=== PATIENT | female | born 1955 | race Caucasian/White ===

== ENCOUNTER 2021-09-04 09:43 | Outpatient (CLI) | payer OTHER, SELFPAY ==
--- NOTE | 2021-09-04 09:48 | FL_ITS ---
WS: [id number] ESOPHAGRAM WITH FLUOROSCOPY HISTORY: DYSPHAGIA, DYSPHONIA COMPARISON: None available. FLUOROSCOPY TIME: 2.0 minutes. Esophagus and swallowing function: Patient swallowed the barium mixture without difficulty. No strict ures or mucosal abnormalities are identified. Barium tablet was swallowed without difficulty. There i s significant pharyngeal coating after swallowing with the barium mixture. No aspiration was evident. No soft tissue mass or filling defect. Vertebral osteophytes encroach upon the posterior cervical es ophagus but do not cause significant narrowing or stricture. Gastroesophageal reflux: Delayed emptying of the esophagus with the patient supine. There was only mi nimal gastroesophageal reflux. Hiatal hernia: Small hiatal hernia. FL/FL barium swallow [id number] IMPRESSION: 1. Delayed emptying of the esophagus due to mild dysmotility. 2. Minimal gastroesophageal reflux into the distal esophagus. 3. No strictures or mass identified. 4. Small reducible hiatal hernia.
--- NOTE | 2021-09-04 09:48 | CT_ITS ---
WS: [id number] CT NECK WITHOUT CONTRAST. HISTORY: DYSPHAGIA, DYSPHONIA TECHNIQUE: Contiguous 5 mm axial images are performed through the neck without intravenous contrast. Sagittal and coronal reformats are also submitted. All CT scans at [facility] use at least on e of these dose optimization techniques: automated exposure control; mA and/or kV adjustment per lissy ent size (includes targeted exams where dose is matched to clinical indication); or iterative reconst ruction. CONTRAST: CONTRAST: Omnipaque 300; 95 mL IV. DLP: 412.06 mGy.cm COMPARISON: None available. Nasopharynx, oropharynx, hypopharynx and larynx are unremarkable. No soft tissue masses mass is ident ified. Torus tubarius and fossa of Rosenmuller and parapharyngeal fat are normal. No significant lymphadenopathy is identified. Mildly enlarged thyroid extends minimally substernal. Subcentimeter RIGHT thyroid nodule. Well-circumscribed mass in the superficial lobe of the RIGHT parotid gland measures 12 x 8 mm. Mild degenerative disc disease and osteophytosis at C5-6. Mild atherosclerotic plaque within the intracranial carotid arteries and the cervical carotid arterie s. Visualized paranasal sinuses and mastoid air cells are normal. Cardiomegaly. CT/CT neck wo con [id number] IMPRESSION: 1. No neck mass or adenopathy identified on this unenhanced CT. 2. Superficial RIGHT parotid lobe mass measures 12 x 8 mm. Recommend evaluatio n by ultrasound. This may be a benign or malignant etiology. Not typical for a lymph node. 3. Cardiomegaly.
== END 2021-09-04 09:44 | disposition home or self-care (01) ==
PROVIDERS: Visit Provider Specialist
DX: R13.10 Dysphagia, unspecified (principal); R49.0 Dysphonia; K30 Functional dyspepsia; K21.9 Gastro-esophageal reflux disease without esophagitis; K44.9 Diaphragmatic hernia without obstruction or gangrene
CPT/HCPCS: 70490; 74220

== ENCOUNTER 2021-10-23 11:56 | Observation (INO) | payer OTHER, SELFPAY ==
[2021-10-22 15:27] VITALS: BMI 26.3
[2021-10-23] VITALS (9 sets, daily range): BP systolic 91–115; BP diastolic 53–71; PULSE 60–80; RESP 14–18; TEMP 36.4–36.6; O2SAT 96–100; BMI 26.3
--- NOTE | 2021-10-23 06:39 | ANES.PREANE2 ---
Pre-Anesthetic Assessment Pre-Anesthetic Assessment: Height/Weight: Height 1.57 m Weight 65.317 kg Temp Pulse Resp BP Pulse Ox 97.9 F 66 18 115/71 97 10/23/21 06:34 10/23/21 06:34 10/23/21 06:34 10/23/21 06:34 10/23/21 06:34 Preop Diagnosis: Neck mass Proposed Procedure: Operation Date: 10/23/21 07:00 Proposed Procedures p [id number]/r131.9/J38.1(Not Applicable) - Jey Siddiqui MD s Direct Laryngoscopy(Not Applicable) - Jey Siddiqui MD s Esophagoscopy(Not Applicable) - Jey Siddiqui MD Familial anesthetic complications: None Was Beta Cosmo taken within 24 hours: N/A Was Clonidine taken within 24 hours: N/A Last intake: Intake Last Liquid Date 10/22/21 Last Liquid Time 00:00 Last Solid Date 10/22/21 Last Solid Time 21:00 Social: Social History: Tobacco and No alcohol Exam: Pre-Anes Outpt Exam: alert, oriented x 3, clear to auscultation bilaterally and regular rate & rhythm Airway: Cervical ROM: WNL MP: 2 Dentition: False Pulmonary: Pulmonary: COPD (no O2 or use of steroids or hospitalizations) CV/HEM: CV/HEM: Angina (Stable) (cath 5-6 years ago, patient states was good, no stents, angina improved since then) and HTN : : Chronic renal Insufficiency (SCr 1.6) GI: GI: GERD Metabolic: Metabolic: DM Neuropsych: Neuropsych: Neuropathy Anesthetic Plan: ASA status: 3 Anesthesia: General Risk of > 500 ml blood loss (7ml/kg in children): No PFSH Anesthesia PFSH: Social History (Updated 10/22/21 @ 14:36 by Maria D Sahu) Smoking and tobacco status: current every day smoker cigarettes Packs smoked per day: 1 Years cigarettes smoked: 51 Number of cigarettes per day: 11-20 Alcohol intake: former Substance/Drug Use: current Substance/Drug use type: Marijuana Desire information about substance/drug rehabilitation?: No Data Anesthesia Cardiac Studies: No Data to Display
--- NOTE | 2021-10-23 06:48 | W.PM.OPSUD ---
Surgery/Procedure H&P Update DATE OF PROCEDURE: October 23, 2021 DATE H&P PERFORMED: 10/10/21 H&P UPDATE INFORMATION: I have reviewed H&P completed within last 30 days, I have examined patient prior to procedure, No changes to prior documentation and H&P to be scanned into chart PREOP DIAGNOSIS: Right parotid gland mass, Dysphagia PLANNED PROCEDURE: Operation Date: 10/23/21 07:00 Proposed Procedures p [id number]/J38.1(Not Applicable) - Jey Siddiqui MD s Direct Laryngoscopy(Not Applicable) - Jey Siddiqui MD s Esophagoscopy(Not Applicable) - Jey Siddiqui MD
[2021-10-23] MEDS: sodium chloride 0.9% 1,000 ML 30 ML IV (06:49)
[2021-10-23 06:53] LABS: Glucose Point of Care 116 mg/dL (70-110)
--- NOTE | 2021-10-23 06:59 | ANES.PREANE2 ---
Pre-Anesthetic Assessment Pre-Anesthetic Assessment: Height/Weight: Height 1.57 m Weight 65.317 kg Temp Pulse Resp BP Pulse Ox 97.9 F 66 18 115/71 97 10/23/21 06:34 10/23/21 06:34 10/23/21 06:34 10/23/21 06:34 10/23/21 06:34 Preop Diagnosis: Right parotid gland mass, Dysphagia Proposed Procedure: Operation Date: 10/23/21 07:00 Proposed Procedures p [id number]/J38.1(Not Applicable) - Jey Siddiqui MD s Direct Laryngoscopy(Not Applicable) - Jey Siddiqui MD s Esophagoscopy(Not Applicable) - Jey Siddiqui MD Last intake: Intake Last Liquid Date 10/22/21 Last Liquid Time 00:00 Last Solid Date 10/22/21 Last Solid Time 21:00 Meds/Allergies Current Medications: Current Medications Generic Name Dose Route Start Last Admin Trade Name Celioq PRN Reason Stop Dose Admin Sodium Chloride 1,000 mls @ 30 ml s/hr 10/23/21 06:15 10/23/21 06:49 Sodium Chloride 0.9% IV 30 mls/hr .Q24H MERRICK Administration PFSH Anesthesia PFSH: Social History (Updated 10/22/21 @ 14:36 by Maria D Sahu) Smoking and tobacco status: current every day smoker cigarettes Packs smoked per day: 1 Years cigarettes smoked: 51 Number of cigarettes per day: 11-20 Alcohol intake: former Substance/Drug Use: current Substance/Drug use type: Marijuana Desire information about substance/drug rehabilitation?: No Data Anesthesia Other Labs: Laboratory Results - last 48 hr 10/23/21 06:46 POC Glucose 116 H Cardiac Studies: No Data to Display
[2021-10-23] MEDS: EPINEPHrine 1 mg/mL INJ 2 MG XX (08:30)
[2021-10-23] MEDS: ceFAZolin 1,000 mg SDV 1000 MG IRRIGATION (08:32)
[2021-10-23] MEDS: fluorescein 1 mg Strip XX (08:34)
[2021-10-23] MEDS: thrombin 5,000 unit SDV 5000 UNIT XX (10:07)
[2021-10-23] MEDS: neomycin-poly-bacitracin oint 28 gm 1 APPLIC TOPICAL (10:08)
--- NOTE | 2021-10-23 11:13 | SUR.OPER ---
1112 report given to zen, all questions answered to icu nurse satisfaction
--- NOTE | 2021-10-23 11:29 | P.OP_ITS ---
Operative Report Date of procedure: October 23, 2021 Pre-op Diagnosis: Right parotid gland mass, Dysphagia Post-op diagnosis: same Post-op Findings: - Right superficial parotid mass - Facial nerve identified and preserved intact - Polypoid changes of the true vocal cords, right greater than left; Bilateral kelsey's nodules; inflammatory changes of the subglottis; o/w normal larynx - Esophagitis at the G-E junction and right mid esophagus Procedure Done: Right superficial parotidectomy Microdirect laryngoscopy with biopsy Flexible esophagoscopy with biopsy Implants: None Pathology: Right parotid mass Right true vocal cord lesion; Right subglottic lesion Polypoid lesion of the true vocal cords, right greater than left; inflammatory changes of the subglottis Esophagitis at the G-E junction and right mid esophagus Surgeon: Jey Siddiqui [employer]man Shipping Department: Bib Jane Foreman Shipping Department: Belinda Torres Anesthesia: General Estimated blood loss (mL): 10 IV fluids (mL): 1,400 Urine output (mL): 600 Complications: None Findings: - 2cm right superficial parotid mass; Intact right facial nerve; o/w normal right parotid gland - 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 Procedure: The patient was identified in the preoperative holding area and was taken to the operating room where she was placed on the operating table in the supine position. Anesthesia was obtained with general endotracheal anesthesia and the table was turned 180 degrees. The patient's head was then turned to the left exposing the right face to the operating surgeon and a modified Cooper incision was drawn out on the patient's right face. The incision was then injected with local anesthesia and the patient was then prepped and draped in the usual sterile fashion. Prior to prepping the patient the Nirvana nerve monitoring system was placed on the patient in the standard fashion. The incision was then made on the right face with a 15 blade and was carried down through skin and subcutaneous tissues with electrocautery and sharp scissors. An anteriorly based subcutaneous flap was raised with the Metzenbaum scissors exposing the right parotid gland. The [place] retractor was used to hold the wound open. At this point a wide-based dissection began along the anterior border of the right sternocleidomastoid muscle and in the immediate preauricular area with sharp scissors and the Neurvana nerve monitoring hemostat. At this point the dissection proceeded along a wide front with the deepest portion being at the tympanomastoid suture line. Using the Nirvana nerve monitoring hemostats and bipolar cautery. Eventually the facial nerve was exposed-it was identified both electrically and visually and then was then traced out into the parotid gland. Each individual branch distal to the pes anserinus was traced out preserving the facial nerve branches intact and dissecting the parotid gland off of the facial nerve. The right parotid mass was identified in the low pre auricular area and was dissected free from the surrounding parotid gland with a wide cuff of normal-appearing parotid tissue surrounding the mass - this was accomplished using the Nirvana nerve monitoring hemostat and bipolar cautery. Once the mass had been removed, the facial nerve was reinspected and found to have all branches intact both visually and electrically. 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 At this point the wound was inspected for hemostasis which was achieved with bipolar cautery. The parotid remnant was then reapproximated using interrupted 4-0 Monocryl sutures and the wound was closed with interrupted 4 Monocryl sutures in the subcu and a running 5-0 fast-absorbing gut on the skin. Prior to wound closure, a Rolando drain was placed under the skin and was secured in place with interrupted 3-0 Prolene sutures. The right facial wound was then cleaned and covered triple antibiotic ointment. At this point attention was turned to the patient's larynx where she underwent MicroDirect laryngoscop. with biopsies. A surgical laryngoscope was advanced on the right oral cavity gutter under direct vision until the larynx came into view. A systematic inspection was carried of the patient's larynx with findings noted above. Biopsies were taken of the polypoid mass on the of the right true vocal cord and the subglottis. Hemostasis was achieved by direct application of 11/999 epinephrine. Once this was accomplished, a systematic inspection was carried out of the patient's tongue base, vallecula, aryepiglottic folds, false and true vocal cords, piriform sinuses, and postcricoid area with no other abnormalities found except as previously noted. At this point the laryngoscope was removed and the esophagoscope was advanced into the esophageal inlet and was used to make an inspection of the esophagus to the cardia of the stomach with the findings noted above. Biopsies were taken at the GE junction and of the patient's right mid esophageal lesion. At this point the esophagoscope was removed and the procedure was terminated. Control of the patient was returned to anesthesia where she underwent an uneventful reversal of anesthesia and extubation and she was taken to the recovery room in stable condition. There were no operative or anesthetic complications
--- NOTE | 2021-10-23 11:40 | PC.NURSE ---
To floor Pt brought to floor by OR staff via bed. Pt is awake, alert and oriented. Incision to right neck has some pink drainage noted. There is some noted edema just above pt's right jaw line. RAJENDRA drain is in place with scant amount of drainage. Chung catheter patent and draining. Pt was placed on 2 liters NC to maintain O2 sats above 90. Pt denies pain. Pt has been oriented to room. Family is at bedside.
[2021-10-23] MEDS: morphine 4 mg/mL SDV 1 mL 2 MG IVP ×3 (12:53→23:05)
[2021-10-23] MEDS: famotidine 20 mg/2 mL INJ IVP (12:55)
[2021-10-23] MEDS: gabapentin 300 mg Capsule PO ×2 (14:26→20:09)
--- NOTE | 2021-10-23 15:46 | ANE.PACU2 ---
Inpatient post-anesthesia follow up: Airway intact: Yes Vital signs: Temperature 97.5 F Pulse Rate 80 Respiratory Rate 18 Blood Pressure 97/57 Pulse Oximetry 98 Oxygen Delivery Me thod Nasal Cannula Oxygen Flow Rate 2 Fraction of Inspir ed Oxygen Hydration adequate: No Nausea and vomiting: No Pain level: 6 Mental status: Baseline Additional Comments: EMR review
--- NOTE | 2021-10-23 17:28 | PM.PN ---
Subjective Subjective: Interval history: 66 yo wf who is night of surgery s/p right superficial parotidectomy who reports that she is doing well. She c/o right ear numbness, but is o/w doing well. The patient reports that she has been eating and that her face is working well. She has no other c/o. Vitals/I&O/Wt Last Vital Signs Temp 97.5 F L 10/23/21 12:02 Pulse 80 10/23/21 14:00 Resp 18 10/23/21 15:26 BP 97/57 10/23/21 12:02 Pulse Ox 98 10/23/21 12:27 10/23/21 10/23/21 10/23/21 06:59 14:59 22:59 Intake Total 60 / 60 Output Total 600 / 600 Balance -540 / -540 Weight last 48 hrs Weight 65.317 kg Weight 65.317 kg Weight 67.132 kg Physical Exam Const: COMMON NORMALS: no acute distress and patient oriented x3 HENMT: COMMON NORMALS: normocephalic, atraumatic, external ears normal and Normal external nose present HEAD & SCALP: normocephalic and atraumatic FACE & SINUS: other (The patient's right face/neck wound is intact with no swelling/fluctuance.) NOSE: Normal external nose present EXTERNAL EAR: Yes external ears normal MOUTH: tongue normal Eye: COMMON NORMALS: EOMs intact bilaterally, conjunctivae normal and no scleral icterus CONJUNCTIVA: Yes conjunctivae normal Neck/C-Spine: COMMON NORMALS: no lymphadenopathy and supple GENERAL: Yes trachea midline and Yes other Lymph: LYMPHATIC: no lymphadenopathy noted Neuro: COMMON NORMALS: patient oriented x3 and CN's II-XII intact bilaterally Urinary Catheter Management^: Chung: Cath Placed During This Visit: yes Urinary Catheter Date of Insertion: 10/23/21 Urinary Catheter Time of Insertion: 07:55 A&P Additional A&P Information Impression: 66 yo wf who is night of surgery s/p right superficial parotidectomy with DL/Esophagoscopy with biopsies who is doing well Plan: - Overnight observation - Closed suction drainage - Regular diet - Anticipate d/c in the am - Apply JOSEE to the right neck/facial wound TID Attestations Medical Necessity Statement*: The patient is admitted for overnight observation of her wound and airway. Coding Level of Care Code Acute Accounting Professional for Raquel English
[2021-10-23] MEDS: docusate sodium 100 mg Capsule PO (17:49)
[2021-10-23] MEDS: carBAMazepine 200 mg Tablet PO (18:26)
--- NOTE | 2021-10-23 18:44 | PC.NURSE ---
Shift Note Frequent safety and comfort rounds continue. Orders and/or nursing care completed as indicated. Patient monitored for response to intervention and treatment(s). Education provided includes myke drain. Patient and/or factory representative verbalize understanding. Will continue to monitor.
[2021-10-23] MEDS: lisinopril 10 mg Tablet PO (20:09)
[2021-10-23] MEDS: ALPRAZolam 0.5 mg Tablet 1 MG PO (20:09)
[2021-10-23] MEDS: atorvastatin 40 mg Tablet PO (20:09)
[2021-10-23] MEDS: hyDRALAzine 25 mg Tablet PO (20:09)
[2021-10-23] MEDS: acetaminophen 325 mg Tablet 650 MG PO (21:13)
[2021-10-23 21:15] LABS: Acetaminophen < 5.0 ug/mL (10-30)
[2021-10-23] MEDS: ARIPiprazole 10 mg Tablet PO (21:33)
[2021-10-24] MEDS: famotidine 20 mg/2 mL INJ IVP (02:23)
--- NOTE | 2021-10-24 04:20 | PM.PN ---
Subjective Subjective: Interval history: 66 yo wf who is POD #1 s/p right superficial parotidectomy and DL/Esophagoscopy. The patient reports that she is doing well. She reports that she is eating well, and is o/w without c/o. Vitals/I&O/Wt Last Vital Signs Temp 97.5 F L 10/23/21 12:02 Pulse 69 10/23/21 22:00 Resp 14 10/23/21 23:05 BP 97/57 10/23/21 12:02 Pulse Ox 96 10/23/21 23:05 10/23/21 10/23/21 10/24/21 14:59 22:59 06:59 Intake Total 60 / 60 410 / 470 Output Total 600 / 600 460 / 1060 Balance -540 / -540 -50 / -590 Weight last 48 hrs Weight 65.317 kg Weight 65.317 kg Weight 67.132 kg Physical Exam Const: COMMON NORMALS: no acute distress, patient oriented x3 and healthy appearing HENMT: COMMON NORMALS: normocephalic, atraumatic, external ears normal and Normal external nose present HEAD & SCALP: normocephalic and atraumatic FACE & SINUS: normal facial exam and other (The right facial/neck wound is intact without erythema or fluctuance.) NOSE: Normal external nose present EXTERNAL EAR: Yes external ears normal Eye: COMMON NORMALS: EOMs intact bilaterally, conjunctivae normal and no scleral icterus CONJUNCTIVA: Yes conjunctivae normal Neck/C-Spine: COMMON NORMALS: no lymphadenopathy and supple GENERAL: Yes trachea midline Resp: COMMON NORMALS: normal respiratory effort, No use of accessory muscles and clear to auscultation bilaterally AUSCULTATION: clear to auscultation bilaterally Cardio: COMMON NORMALS: regular rate, regular rhythm and No murmurs present (Cardio) RATE: regular rate RHYTHM: regular rhythm GI: COMMON NORMALS: Normal to inspection, nondistended, normoactive bowel sounds present Extremity: COMMON NORMALS: normal to inspection Neuro: COMMON NORMALS: patient oriented x3, CN's II-XII intact bilaterally and moves all extremities Skin: COMMON NORMALS: no rashes or lesions noted GENERAL SKIN EXAM: no rashes or lesions noted Urinary Catheter Management^: Chung: Cath Placed During This Visit: yes Urinary Catheter Date of Insertion: 10/23/21 Urinary Catheter Time of Insertion: 07:55 A&P Additional A&P Information Impression: 66 yo wf who is doing well on POD #1 s/p right superficial parotidectomy Plan: - [place] () tabs: take 1-2 tabs po Q5 hours prn pain, #25, NR - Maintain and operate Rolando drain and record output - Regular diet - Apply JOSEE to the right facial wound TID - F/U in Dr. Siddiqui's office on 10/26/21 @ 13:00 hours - Notify Dr. Siddiqui for any noted problems - Resume normal activities as tolerated and ambulate TID Attestations Medical Necessity Statement*: The patient required overnight observation of her wound and airway Coding Level of Care Code Acute 4 H Youth Development Specialist for Raquel English
[2021-10-24 04:27] VITALS: BP 119/63; PULSE 80; RESP 14; TEMP 36.5; O2SAT 97
[2021-10-24 04:39] VITALS: RESP 14
[2021-10-24] MEDS: morphine 4 mg/mL SDV 1 mL 2 MG IVP ×2 (04:39→08:34)
[2021-10-24 05:24] VITALS: PULSE 56
--- NOTE | 2021-10-24 06:27 | PC.NURSE ---
Pt remained medically stable throughout shift. Patient received 2 doses of IVP morphine for post op pain, and PRN tylenol once for HELMS. Afebrile. Provider came by for rounding approximately 0500, and input orders for discharge, d/c'f davila catheter, and nurse to conduct pt education on RAJENDRA drain management. Pt voided post-catheter removal approximately 0610.
[2021-10-24 08:34] VITALS: RESP 20; O2SAT 96
[2021-10-24] MEDS: carBAMazepine 200 mg Tablet PO (08:38)
[2021-10-24] MEDS: amlodipine 5 mg Tablet PO (08:38)
[2021-10-24] MEDS: docusate sodium 100 mg Capsule PO (08:38)
[2021-10-24] MEDS: gabapentin 300 mg Capsule PO (08:38)
[2021-10-24] MEDS: hyDRALAzine 25 mg Tablet PO (08:39)
[2021-10-24] MEDS: pantoprazole DR 40 mg Tablet PO (08:39)
[2021-10-24 10:00] VITALS: RESP 20; O2SAT 96
--- NOTE | 2021-10-24 10:00 | PC.NURSE ---
Discharge instructions provided and discussed. Pt to poultry picking machine tender pain medication from Dr Siddiqui's office. All questions answered. Pt discharged.
--- NOTE | 2021-10-24 10:36 | PC.CHAP ---
Pastoral Care Encounter/Spiritual Assessment Type of Contact [] Declined associate professor of kinesiology visit [] Patient/Family/Request visit [] Outpatient visit [] Follow-up visit [] Physician referral [] Code/Alert [x] Routine visit [] Staff referral [] Actively dying [] Patient sleeping [] Family support [] [] Out of room [] Palliative care [] [] Receiving care in room [] Pre-surgical visit [] Trauma [] Long length of stay [x] ICU visit [] Other: Relational/Emotional Strength [] Patient feels connected with others/family/visitors/staff [] Distress [] Loneliness/isolation [] Abandonment Spirituality of Patient [] Person of Sobeida [] Attends Anglican of their Sobeida [] Believes in Prayer [] Reads Bible or Spiritism materials [] There are Spiritual issues to be addressed Press Puller Interventions [x] Prayer [x] Active listening [x] Non-anxious presence [x] Spiritual/emotional support [] Crisis/trauma care [] Spiritual counseling [] Bereavement support [] Provided bereavement packet [] Provided Bible/devotional materials [] Provided toy/stuffed animal, coloring book to patient or family member [] Provided Communion [] Anointing/[place] [] Salvation [x] Completed spiritual assessment [] Other: Impact on Illness or Injury [] Angry [] Fearful [] Anxious [] Often cries [] Exhaustion [] Unable to work [] Unable to attend jainism [] Unable to walk/stand [] Unable to read [] Unable to drive [] Unable to eat/drink [] Unable to sleep [] Unable to be with family [] Patient intubated [] Other: Summary preparing to be discharged... loved the care she received... Time spent with patient 10 min
== END 2021-10-24 10:05 | disposition home or self-care (01) ==
LOC: ICU 11:58
PROVIDERS: Admitting Provider Specialist; PCP Internal Medicine; Visit Provider Specialist
PROC: (CPT 42410; principal; 2021-10-23 07:00)
PROC: 0CJS8ZZ Inspection of Larynx, Via Natural or Artificial Opening Endoscopic (ICD-10-PCS; CPT 31536; 2021-10-23 07:00)
PROC: 0DJ08ZZ Inspection of Upper Intestinal Tract, Via Natural or Artificial Opening Endoscopic (ICD-10-PCS; CPT 31536; 2021-10-23 07:00)
DX: D11.0 Benign neoplasm of parotid gland (principal); R13.10 Dysphagia, unspecified; J44.9 Chronic obstructive pulmonary disease, unspecified; K21.9 Gastro-esophageal reflux disease without esophagitis; E11.40 Type 2 diabetes mellitus with diabetic neuropathy, unspecified; F17.210 Nicotine dependence, cigarettes, uncomplicated
CPT/HCPCS: 31536; 42415; 43202; 12345; 36415; 36416; 51702; 80307; 82962; 88305; 88307; 88309; G0378; J0171; J0330; J0690; J1100; J2270; J2370; J2405; J2704; J3010; J3490; J7030

== ENCOUNTER 2023-03-06 15:14 | Outpatient (CLI) | payer OTHER, SELFPAY ==
--- NOTE | 2023-03-06 | US_ITS ---
WS: [id number] RENAL ULTRASOUND HISTORY: CKD STAGE 3 COMPARISON: None available. TECHNIQUE: 2-D and color Doppler imaging of the kidney submitted. Right kidney: 9.2 cm x 4.3 cm x 4.1 cm. Cortex: 1.3 cm Normal echogenicity with no hydronephrosis or mass. Left kidney: 9.1 cm x 4.1 cm x 4.4 cm. Cortex: 1.0 cm Normal echogenicity with no hydronephrosis or mass. Aorta: Normal. Urinary Bladder: Mildly distended. US/US renal BI* [id number] IMPRESSION: Normal renal ultrasound.
== END 2023-03-06 15:15 | disposition home or self-care (01) ==
LOC: RAD 15:26
PROVIDERS: PCP Internal Medicine; Visit Provider Internal Medicine Nephrology
DX: I12.9 Hypertensive chronic kidney disease with stage 1 through stage 4 chronic kidney disease, or unspecified chronic kidney disease (principal); N18.32 Chronic kidney disease, stage 3b
CPT/HCPCS: 76770

== ENCOUNTER 2023-03-17 15:28 | Outpatient (CLI) | payer OTHER, SELFPAY ==
--- NOTE | 2023-03-17 | MR_ITS ---
WS: [id number] MRI RIGHT KNEE NONCONTRAST TECHNIQUE: Axial PD, coronal PD fat sat, coronal PD, sagittal PD, and sagittal PD fat-sat images obta ined. CLINICAL INFORMATION: RKP COMPARISON: None. FINDINGS: Distal quadriceps and patella tendons are intact. Small to moderate suprapatellar effusion. Prepatell ar and infrapatellar soft tissue edema. Normal ACL and PCL. Advanced chondromalacia patella. Normal medial and lateral patellar retinaculum. Advanced degenerativ e narrowing medial and lateral joint compartments. Medial and lateral collateral ligaments are intact . Complex tear involving the posterior horn medial meniscus with blunting of the posterior horn. Adva nced joint space narrowing medial joint compartment with subchondral edema. Peripheral extrusion of t he medial meniscus. Additional blunting of the posterior horn lateral meniscus extending to the meniscal root compatible with meniscal tear. Parameniscal cyst along the posterior horn lateral meniscus. Ganglion cyst along the PCL and dorsal intercondylar notch. Medial and lateral collateral ligaments appear intact. MR/MR knee RT wo con* [id number] IMPRESSION: 1. ACL and PCL are intact. 2. Advanced chondromalacia patella. 3. Small to moderate suprapatellar effusion. 4. Tear involving the posterior horns medial and lateral meniscus worse involv ing the medial meniscus with peripheral extrusion. Small parameniscal cyst abhijit g the posterior horn lateral meniscus. 5. Advanced degenerative narrowing medial joint compartment with subchondral e shannan and grade IV chondromalacia. 6. Small ganglion cyst along the dorsal surface of the PCL and dorsal intercon dylar notch. Outbridge grading: grade IV: full-thickness cartilage loss with underlying bone reactive changes
== END 2023-03-17 15:29 | disposition home or self-care (01) ==
LOC: RAD 15:33
PROVIDERS: PCP Internal Medicine; Visit Provider Internal Medicine
DX: N18.32 Chronic kidney disease, stage 3b (principal); M22.41 Chondromalacia patellae, right knee; M67.461 Ganglion, right knee
CPT/HCPCS: 73721

== ENCOUNTER → 2023-03-27 13:51 | Outpatient (BNVA) | payer OTHER, SELFPAY | PROVIDERS: PCP Internal Medicine; Referring Provider Internal Medicine; Visit Provider Student in an Organized Health Care Education/Training Program | DX: M17.11 Unilateral primary osteoarthritis, right knee (principal); M23.206 Derangement of unspecified meniscus due to old tear or injury, right knee | CPT/HCPCS: 73560; 73565; 99204 ==

== ENCOUNTER 2023-04-29 06:59 | Day surgery (SDC) | payer OTHER, SELFPAY ==
[2023-04-28 16:24] VITALS: BMI 29.2
[2023-04-29] VITALS (10 sets, daily range): BP systolic 103–140; BP diastolic 53–88; PULSE 72–76; RESP 16–20; TEMP 36.4–37.2; O2SAT 92–99
[2023-04-29] MEDS: sodium chloride 0.9% 1,000 ML 30 ML IV (07:33)
[2023-04-29] MEDS: acetaminophen 1,000 MG/100 ML PIGGYBACK 400 MG IV (07:34)
[2023-04-29] MEDS: ketorolac 30 mg/mL INJ IVP (08:02)
[2023-04-29 08:04] LABS: Glucose Point of Care 132 mg/dL (70-110)
--- NOTE | 2023-04-29 08:06 | ECG_ITS ---
[facility] Test Date: 2023-04-29 Pat Name: Lidya Armas Department: Room: Gender: Female Luggage Maker: : [id number] Requested By: Dustin Robert Order Number: [id number] Roopa MD: Jared Gonzáles M.D. Measurements Intervals [place] Rate: 67 P: 74 [place]: 202 QRS: 68 QRSD: 103 T: 65 QT: 393 QTc: 416 Interpretive Statements SINUS RHYTHM MODERATE T-WAVE ABNORMALITY, CONSIDER ANTERIOR ISCHEMIA [-0.1+ mV T-WAVE IN V3/V4] No previous ECG available for comparison Electronically Signed On 04-29-2023 16:35:28 CDT by Jared Gonzáles M.D. [id number]
--- NOTE | 2023-04-29 09:36 | P.HP_ITS ---
Same Day Surgery H&P Indication for Procedure/HPI DATE OF PROCEDURE: April 29, 2023 CHIEF COMPLAINT/INDICATIONFOR SURGICAL PROCEDURE: Right knee medial and lateral meniscus tears No change in HPI from office visit 03/27/2023. PREOP DIAGNOSIS: Right knee medial and lateral meniscus tears PLANNED PROCEDURE: Operation Date: 04/29/23 08:55 Proposed Procedures p right knee diagnostic and surgical arthroscopy with partial medial and lateral menisectomy:96805,S83.281A(Right) - Isak Sanborn, DO Medications/Allergies* Home Medications Medication Instructions Recorded Confirmed Type alprazolam 1 mg tablet (Xanax) 1 mg PO BEDTIME 10/22/21 04/28/23 History amlodipine 5 mg tablet 5 mg PO DAILY 10/22/21 04/28/23 History aripiprazole 10 mg tablet 10 mg PO BEDTIME 10/22/21 04/28/23 History atorvastatin 40 mg tablet 40 mg PO BEDTIME 10/22/21 04/28/23 History carbamazepine 200 mg tablet 200 mg PO BID 10/22/21 04/28/23 History gabapentin 300 mg capsule 300 mg PO TID 10/22/21 04/28/23 History hydralazine 25 mg tablet 25 mg PO TID 10/22/21 04/28/23 History lisinopril 10 mg tablet 10 mg PO BEDTIME 10/22/21 04/28/23 History metformin 850 mg tablet 850 mg PO DAILY 10/22/21 04/28/23 History nitroglycerin 0.4 mg sublingual 0.4 mg sublingual Q5M PRN chest 10/22/21 0 04/29/23 History tablet (Nitrostat) pain tizanidine 4 mg tablet 4 mg PO BID PRN Muscle Spasm 10/22/21 04/28/23 History torsemide 100 mg tablet 50 mg PO QAM 10/22/21 04/28/23 History cholecalciferol (vitamin D3) 125 125 mcg PO DAILY 04/28/23 04/28/23 History mcg (5,000 unit) tablet (Vitamin D3) pantoprazole 40 mg tablet,delayed 40 mg PO DAILY 04/28/23 04/28/23 History release Allergies/Adverse Reactions Allergy/AdvReac Type Severity Reaction Status Date / Time bupropion [From Wellbutrin] Allergy ALGY-Difficulty Verified 04/28/23 16:05 Breathing Iodinated Contrast Media Allergy Unknown Verified 04/28/23 16:05 lithium Allergy ALGY-Difficulty Verified 04/28/23 16:05 Breathing propoxyphene Allergy ALGY-Difficulty Verified 04/28/23 16:05 [From Darvocet-N] Breathing sumatriptan Allergy ALGY-Difficulty Verified 04/28/23 16:05 Breathing Tetanus Vaccines and Toxoid Allergy ALGY-Difficulty Verified 04/28/23 16:05 Breathing Current Medications: Generic Name Dose Route Start Last Admin Trade Name Freq PRN Reason Stop Dose Admin Sodium Chloride 1,000 mls @ 30 mls/hr 04/29/23 07:15 04/29/23 07:33 Sodium Chloride 0.9% IV 04/30/23 07:14 30 mls/hr .Q24H MERRICK Administration Pertinent History/Comorbid Conditions* Social History Smoking and tobacco status: current every day smoker cigarettes Packs smoked per day: 1 Years cigarettes smoked: 51 Alcohol intake: former Substance/Drug Use: current Desire information about substance/drug rehabilitation?: No Pertinent Exam Findings alert, oriented x 3, operative site marked and procedure specific exam findings Examination right knee normal hip motion w/o pain full knee motion, pain w/ deep flexion positive mcmurrys medial and lateral joint line neg lachmans stable varus and valgus no clinical deformity mild joint effusion ttp retro patellar space neg patellar grind Recommendations Surgery/Procedure today Other Plans: Patient understands risk benefits complication alternatives of surgery and elects proceed with right knee diagnostic and surgical arthroscopy with partial medial and partial lateral meniscectomy. All questions answered. Coding Level of Care Code Acute Code for Chg Fwd Diagnoses
[2023-04-29] MEDS: ceFAZolin 2,000 MG in sodium chloride 0.9% (plus) 50 ML 100 MG IV (09:41)
--- NOTE | 2023-04-29 10:20 | ANES.PREANE2 ---
Pre-Anesthetic Assessment Height/Weight: Height 1.57 m Weight 72.575 kg Temp Pulse Resp BP Pulse Ox O2 Del Method 99.0 F 72 18 140/88 94 Room Air 04/29/23 07:10 04/29/23 07:10 04/29/23 07:10 04/29/23 07:10 04/29/23 07:10 04/29/23 07:20 Preop Diagnosis: Right knee medial and lateral meniscus tears Operation Date: 04/29/23 08:55 Proposed Procedures p right knee diagnostic and surgical arthroscopy with partial medial and lateral menisectomy:[id number],S83.281A(Right) - Isak Ruddy, DO Familial anesthetic complications: none Was Beta Cosmo taken within 24 hours: N/A Was Clonidine taken within 24 hours: N/A Last intake: Intake Last Liquid Date 04/28/23 Last Liquid Time 22:00 Last Solid Date 04/28/23 Last Solid Time 22:00 Social Tobacco and No alcohol Exam alert, oriented x 3 and regular rate & rhythm Airway Submandibular: within normal limits Cervical ROM: within normal limits Mallampati: Class II Dentition: false Pulmonary Chronic Obstructive Pulmonary Disease CV/HEM Hypertension Metabolic Diabetes Mellitus Neuropsych Anxiety and Depression Anesthetic Plan ASA status: 3 Anesthesia: General and Regional (specify below) (Right adductor blk) Medications/Allergies Home Medications Medication Instructions Recorded Confirmed Last Taken Type alprazolam 1 mg tablet (Xanax) 1 mg PO BEDTIME 10/22/21 04/28/23 04/28/23 History amlodipine 5 mg tablet 5 mg PO DAILY 10/22/21 04/28/23 04/29/23 05:30 History aripiprazole 10 mg tablet 10 mg PO BEDTIME 10/22/21 04/28/23 04/28/23 History atorvastatin 40 mg tablet 40 mg PO BEDTIME 10/22/21 04/28/23 04/28/23 History carbamazepine 200 mg tablet 200 mg PO BID 10/22/21 04/28/23 04/29/23 05:30 History gabapentin 300 mg capsule 300 mg PO TID 10/22/21 04/28/23 04/29/23 05:30 History hydralazine 25 mg tablet 25 mg PO TID 10/22/21 04/28/23 04/29/23 05:30 History lisinopril 10 mg tablet 10 mg PO BEDTIME 10/22/21 04/28/23 04/28/23 History metformin 850 mg tablet 850 mg PO DAILY 10/22/21 04/28/23 04/28/23 History nitroglycerin 0.4 mg sublingual 0.4 mg sublingual Q5M PRN chest 10/22/21 04/29/23 2 Years Ago History tablet (Nitrostat) pain ~04/29/21 tizanidine 4 mg tablet 4 mg PO BID PRN Muscle Spasm 10/22/21 04/28/23 04/29/23 05:30 History torsemide 100 mg tablet 50 mg PO QAM 10/22/21 04/28/23 04/29/23 05:30 History cholecalciferol (vitamin D3) 125 125 mcg PO DAILY 04/28/23 04/28/23 04/29/23 05:30 History mcg (5,000 unit) tablet (Vitamin D3) pantoprazole 40 mg tablet,delayed 40 mg PO DAILY 04/28/23 04/28/23 04/29/23 05:30 History release Allergies Allergy/AdvReac Type Severity Reaction Status Date / Time bupropion [From Wellbutrin] Allergy ALGY-Difficulty Verified 04/28/23 16:05 Breathing Iodinated Contrast Media Allergy Unknown Verified 04/28/23 16:05 lithium Allergy ALGY-Difficulty Verified 04/28/23 16:05 Breathing propoxyphene Allergy ALGY-Difficulty Verified 04/28/23 16:05 [From Darvocet-N] Breathing sumatriptan Allergy ALGY-Difficulty Verified 04/28/23 16:05 Breathing Tetanus Vaccines and Toxoid Allergy ALGY-Difficulty Verified 04/28/23 16:05 Breathing Current Medications Generic Name Dose Route Start Last Admin Trade Name Freq PRN Reason Stop Dose Admin Sodium Chloride 1,000 mls @ 30 mls/hr 04/29/23 07:15 04/29/23 07:33 Sodium Chloride 0.9% IV 04/30/23 07:14 30 mls/hr .Q24H MERRICK Administration PFSH Anesthesia Social History Smoking and tobacco status: current every day smoker cigarettes Packs smoked per day: 1 Years cigarettes smoked: 51 Alcohol intake: former Substance/Drug Use: current Desire information about substance/drug rehabilitation?: No Data Anesthesia Cardiac Studies: No Data to Display Anesthesia Procedures Nerve Block Nerve Block 1: Main Anesthesia: general anesthesia Time Out Performed: Yes Consent: requested by attending/covering physician, from patient, risks and benefits reviewed and patient agrees to proceed Nerve block location: adductor canal (right) Anesthesia monitors applied: pulse oximetry, EKG, BP cuff and oxygen Nerve block position: supine Anesthetic Used: ropivicaine 0.5% Amount of anesthesia used (mL): 20 Ultrasound used to: recognize landmarks Nerve Stimulator Used?: No Interscalene/Femoral BLK: 4 stimuplex 21 g needle used for position and inplane approach Injection: neg aspiration of heme Patient Tolerated Procedure: well Complications: none
[2023-04-29] MEDS: lidocaine-epi 2% 20 mL INJ 40 ML INJECTION (10:39)
--- NOTE | 2023-04-29 10:54 | P.OP_ITS ---
Operative Report Date of procedure: April 29, 2023 Pre-op diagnosis: Preop Diagnosis Right knee medial and lateral meniscus tears Procedure: Post-op diagnosis: Right knee lateral meniscus tear Right knee medial meniscus tear Right knee extensive synovitis Right knee Medial and patellofemoral chondromalacia Procedure done: Right knee diagnostic and surgical arthroscopy partial medial meniscectomy and partial lateral meniscectomy Right knee diagnostic and surgical arthroscopy with extensive synovectomy of the medial lateral and patellofemoral compartments Right knee diagnostic and surgical arthroscopy with medial and patellofemoral compartment chondroplasties Surgeon: Isak Fox DO Estimated blood loss: 5 Tourniquet: No tourniquet was used IV fluids: See anesthesia record Complications: None Findings: See operative report narrative Condition: stable Disposition: same day Brief History: Patient is a 68-year-old female with right knee pain.? Patient has failed conservative treatment who has been worked up for right knee pain in the outpatient setting.?MRI findings consistent with tear of the medial and lateral meniscus. talked in the office about treatment options patient would like to proceed with a right knee diagnostic and surgical arthroscopy with partial medial meniscectomy and partial lateral meniscectomy.? Patient understand the ins and outs of the procedure the risk benefits complication alternatives to treatment options.? Understanding risk of surgery they agree to proceed with surgical intervention.? Patient understand this may not provide patient with complete symptomatic relief of? pain as patient does have some underlying arthritis.? Understanding this and patient agree to proceed with surgical intervention all questions answered. MR/MR knee RT wo con* [id number] IMPRESSION: ? 1.? ACL and PCL are intact. 2.? Advanced chondromalacia patella. 3.? Small to moderate suprapatellar effusion. 4.? Tear involving the posterior horns medial and lateral meniscus worse involving the medial meniscus with peripheral extrusion. Small parameniscal cyst along the posterior horn lateral meniscus. 5.? Advanced degenerative narrowing medial joint compartment with subchondral edema and grade IV chondromalacia. 6.? Small ganglion cyst along the dorsal surface of the PCL and dorsal intercondylar notch. Procedure: Patient seen and evaluated in the preoperative holding area.? Consent was reviewed and signed with patient.? Correct extremity was then marked.? Patient seen evaluated Anesthesia Department once cleared for surgery patient was taken back to the operative suite.? Patient was transported onto the OR table in supine position.? All bony prominences well-padded patient was appropriate secured to the bed.? Once appropriately anesthetized a nonsterile tourniquet was applied to the right thigh.? The?right?lower extremity was then prepped and draped in standard orthopedic fashion.? Final timeout performed.? Patient received appropriate preoperative antibiotics. Patient received local anesthetic of lidocaine with epinephrine into the joint as well as around the portal sites.? No tourniquet was inflated A standard 2 portal vertical incision diagnostic and surgical arthroscopy of the right knee was performed in standard fashion.? Small stab incision made in the inferolateral portal introduced trocar and arthroscope into the suprapatellar pouch.? Suprapatellar pouch was subsequently visualized and found to have significant synovitis but no loose bodies.? Patient had noticeable significant inflamed infrapatellar fat pad and thickening hypertrophic within the patellofemoral compartment.? ?The medial gutter was free of loose bodies I then introduced the arthroscope into the medial compartment.? Within the medial compartment I then established my inferior medial working portal utilizing spinal needle outside in technique.? Once established I then visualized our articular cartilage of the medial compartment with a valgus stress.? Patient was found to have grade 3-4 chondromalacia throughout the medial compartment.? Next I inspected the meniscus.? With an arthroscopic probe was utilized to visual? all aspects of the meniscus.? Meniscal root was found to be intact.? Meniscus was found to be torn at the body to posterior horn junction.? I then subsequently introduced a basket forceps as well as arthroscopic shaver to perform a partial medial meniscectomy to stable meniscal tissue and then utilized a thermal wand to anneal the edges.? Next, I then performed a synovectomy of the medial compartment.? Given patient's chondromalacia there was areas of unstable articular cartilage and I subseq uently performed a chondroplasty with arthroscopic shaver and thermal wand.? This completed medial compartment work. Next a introduced the arthroscope to the intercondylar notch.? PCL and ACL were intact. patient had significant thickening of the infrapatellar fat pad spanning into the medial and lateral compartments.? I then performed an extensive synovectomy with the arthroscopic shaver of the patellofemoral medial and lateral compartments as well as the intercondylar notch. Advance the scope into the retrocruciate space and no loose bodies were found. Next I introduced the arthroscope into the lateral compartment the lateral compartment was found to have grade?2 chondromalacia.??Lateral meniscus was found to be torn. The root was intact tear was at the posterior horn and subsequently utilized an arthroscopic shaver and basket forceps to perform a partial lateral meniscectomy to stable meniscal tissue. Given the grade II chondromalacia there is no unstable cartilage pieces to perform chondroplasty. This completed my work of the lateral compartment and then performed a synovectomy of the lateral compartment. Next of the arthroscope was placed into the lateral gutter and this was free of loose bodies.? Finally I reintroduced the arthroscope into the patellofemoral compartment.? The patellofemoral was found to have grade 3 chondromalacia of the patellofemoral compartment. ?At this point I utilized arthroscopic shaver as well as thermal wand to perform extensive synovectomy of the patellofemoral compartment, as well as performed a chondroplasty of unstable articular cartilage to stable articular tissue with arthroscopic shaver and thermal wand.? ? This completed my work of the patellofemoral space.? I then switch my portal sites to the medial working portal.? Completed the rest of my synovectomy and the rest of my examination arthroscopy was normal. All fluid was suctioned from the joint.?? All instruments were withdrawn.? Portal sites were closed with interrupted nylon suture.? portal sites were then covered with with Xeroform 4 x 4's ABD Curlex and Quique wrap.? Patient was then subsequently awakened from anesthesia and taken to PACU in stable condition. Disposition: Patient taken to PACU in stable condition recovering well.? Will receive appropriate discharge structure as well as pain medication postoperatively as well as? DVT prophylaxis.we will have patient follow-up with us in the office in 2 weeks.? We will weightbearing as tolerated to the right lower extremity.? Patient understands and agrees with current plan.? All questions answered.
--- NOTE | 2023-04-29 10:54 | P.OP_ITS ---
Brief Operative Note Date of procedure: 04/29/23 Pre-op diagnosis: Right knee pain medial and lateral meniscus tear, chondromal acia Post-op diagnosis: same (Extensive synovitis) Procedure Done: Right knee diagnostic and surgical arthroscopy partial medial meniscectomy and partial lateral meniscectomy Right knee diagnostic and surgical arthroscopy with extensive synovectomy of the medial lateral and patellofemoral compartments Right knee diagnostic and surgical arthroscopy with medial and patellofemoral compartment chondroplasties Surgeon: Isak Fox Estimated blood loss (mL): 5 Complications: None Post-op Plan: Patient taken to PACU in stable condition recovering well pain controlled. Dressings clean dry and intact be allowed weightbearing as tolerated right lower extremity she will receive appropriate discharge structure as well as pain medication postoperatively as well as daily aspirin supplement for blood clot prevention patient understands agrees with current plan. Questions answered. Follow-up in the office in 2 weeks Condition: stable Disposition: same day Coding Level of Care Code Acute Code for Raquel English
--- NOTE | 2023-04-29 10:54 | PM.PACU ---
PACU note Narrative: Patient taken to PACU in stable condition recovering well pain controlled. Distal pulses are palpable toes warm well perfused of the right lower extremity. Dressings on in place and is clean dry and intact to the right knee. Patient is able to wiggle toes plantarflex and dorsiflex ankle sensations intact to light touch Exam: awake Disposition: discharged
--- NOTE | 2023-04-29 10:56 | PC.NURSE ---
Pt arrived to PACU, O2 at 6L/min via simple mask placed. Dressing to right knee C/D/I, right toes p/w/d, cap refill < 3 seconds, good pedal pulse noted, able to wiggle toes. Ice pack applied.
[2023-04-29] MEDS: HYDROcodone-acetaminophen 5-325 mg Tablet 1 TAB PO (11:48)
--- NOTE | 2023-04-29 17:46 | ANE.PACU2 ---
Inpatient post-anesthesia follow up: Airway intact: Yes Vital signs: Temperature 97.5 F Pulse Rate 73 Respiratory Rate 18 Blood Pressure 112/55 Pulse Oximetry 92 Oxygen Delivery Me thod Room Air Oxygen Flow Rate 6 Fraction of Inspir ed Oxygen Hydration adequate: Yes Nausea and vomiting: No Pain level: 3 Mental status: Baseline
== END 2023-04-29 12:05 | disposition home or self-care (01) ==
PROVIDERS: PCP Internal Medicine; Visit Provider Student in an Organized Health Care Education/Training Program
PROC: (CPT 29870; principal; 2023-04-29 08:45)
PROC: (CPT 29876; 2023-04-29 08:45)
DX: S83.241A Other tear of medial meniscus, current injury, right knee, initial encounter (principal); S83.281A Other tear of lateral meniscus, current injury, right knee, initial encounter; M17.11 Unilateral primary osteoarthritis, right knee; M22.41 Chondromalacia patellae, right knee; M67.461 Ganglion, right knee; M25.461 Effusion, right knee; J44.9 Chronic obstructive pulmonary disease, unspecified; I10 Essential (primary) hypertension; E11.9 Type 2 diabetes mellitus without complications; Z79.84 Long term (current) use of oral hypoglycemic drugs; F17.210 Nicotine dependence, cigarettes, uncomplicated; X58.XXXA Exposure to other specified factors, initial encounter
CPT/HCPCS: 29876; 29880; 36416; 82962; 93005; J0131; J0330; J0690; J1100; J1885; J2250; J2370; J2405; J2704; J3010; J3490; J7030

== ENCOUNTER → 2023-05-12 13:04 | Outpatient (BNVA) | payer OTHER, SELFPAY | PROVIDERS: PCP Internal Medicine; Visit Provider Student in an Organized Health Care Education/Training Program | DX: Z98.890 Other specified postprocedural states (principal) | CPT/HCPCS: 99024 ==

== ENCOUNTER → 2023-07-10 13:21 | Outpatient (BNVA) | payer OTHER, SELFPAY | PROVIDERS: PCP Internal Medicine; Visit Provider Student in an Organized Health Care Education/Training Program | DX: Z98.890 Other specified postprocedural states (principal); M17.11 Unilateral primary osteoarthritis, right knee | CPT/HCPCS: 99024 ==

== ENCOUNTER → 2024-04-15 14:26 | Outpatient (BNVA) | payer OTHER, SELFPAY | PROVIDERS: PCP Internal Medicine; Referring Provider Nurse Practitioner Family; Visit Provider Student in an Organized Health Care Education/Training Program | DX: M17.11 Unilateral primary osteoarthritis, right knee (principal); Z98.890 Other specified postprocedural states | CPT/HCPCS: 20610; 73560; 73565; 99213 ==

== ENCOUNTER → 2024-07-20 14:11 | Outpatient (BNVA) | payer OTHER, SELFPAY | PROVIDERS: PCP Internal Medicine; Visit Provider Student in an Organized Health Care Education/Training Program | DX: M17.11 Unilateral primary osteoarthritis, right knee | CPT/HCPCS: 20610; 99213; J3301 ==

== ENCOUNTER → 2024-08-11 14:22 | Outpatient (BNVA) | payer OTHER, SELFPAY | PROVIDERS: PCP Internal Medicine; Visit Provider Nurse Practitioner Family | DX: L82.0 Inflamed seborrheic keratosis (principal); L82.1 Other seborrheic keratosis; L81.4 Other melanin hyperpigmentation; D22.5 Melanocytic nevi of trunk | CPT/HCPCS: 17110; 99203 ==

== ENCOUNTER → 2024-10-19 14:05 | Outpatient (BNVA) | payer OTHER, SELFPAY | PROVIDERS: PCP Internal Medicine; Visit Provider Student in an Organized Health Care Education/Training Program | DX: M17.11 Unilateral primary osteoarthritis, right knee (principal) | CPT/HCPCS: 20610; 99213; J3301 ==

== ENCOUNTER 2024-10-26 13:21 | Outpatient (CLI) | payer OTHER, SELFPAY ==
--- NOTE | 2024-10-26 13:27 | MR_ITS ---
WS: [id number] MRI LUMBAR SPINE NONCONTRAST TECHNIQUE: Sagittal T1, T2 and STIR imaging. Axial T1 and T2 imaging. CLINICAL INFORMATION: SPONDYLOSIS OF LUMBAR SPINE COMPARISON: None. FINDINGS: Mild lumbar curve. No acute compression. Grade 1 anterolisthesis L2 on L3. Pedicle screw fixation L3- L5 with interbody fusion graft. L1-L2: Mild annular bulging. Mild central canal stenosis. Mild facet arthropathy. Slight impingement of the subarticular recess bilaterally. Tiny LEFT foraminal protrusion with mild LEFT foraminal narro wing. L2-L3: Severe LEFT and moderate RIGHT foraminal narrowing. Impingement on the exiting LEFT L2 nerve r oot with LEFT foraminal protrusion. Moderate facet arthropathy with ligamentum flavum hypertrophy. L3-L4: Pedicle screw fixation with interbody fusion. Laminectomy defects. Spinal canal and foramen ar e patent. L4-L5: Pedicle screw fixation with interbody fusion. Spinal canal and foramen are patent. Laminectomy defects. L5-S1: Mild annular bulging with slight encroachment on the traversing S1 nerve roots bilaterally. Sp inal canal and foramen are patent. Moderate facet arthropathy. Visualized pelvic bony structures: Normal. Paravertebral soft tissues: Normal. MR/MR lumbar spine wo con* [id number] IMPRESSION: 1. Slight anterolisthesis L2 on L3. Pedicle screw fixation with interbody fusi on L3-L5. 2. Severe central canal stenosis L2-3 due to grade 1 anterolisthesis in combin ation with disc bulging and facet arthropathy with ligamentum flavum hypertroph y. 3. Foraminal protrusions L2-3 with severe LEFT and moderate RIGHT foraminal na rrowing. 4. Mild central canal stenosis L1-2 with shallow central disc protrusion and i mpingement on the subarticular recess. Mild LEFT foraminal narrowing at this le carmen. 5. Spinal canal and foramen are patent at the fusion levels.
== END 2024-10-26 13:22 | disposition home or self-care (01) ==
PROVIDERS: PCP Internal Medicine; Visit Provider Internal Medicine
DX: M99.63 Osseous and subluxation stenosis of intervertebral foramina of lumbar region (principal); M54.16 Radiculopathy, lumbar region; M47.896 Other spondylosis, lumbar region; M43.26 Fusion of spine, lumbar region; M48.061 Spinal stenosis, lumbar region without neurogenic claudication; G89.4 Chronic pain syndrome
CPT/HCPCS: 72148

== ENCOUNTER → 2025-02-09 15:08 | Outpatient (BNVA) | payer OTHER, SELFPAY | PROVIDERS: PCP Internal Medicine; Visit Provider Physician Assistant | DX: Z98.890 Other specified postprocedural states (principal); M17.11 Unilateral primary osteoarthritis, right knee | CPT/HCPCS: 20610; 73560; 73565; 99213; J3301; J9999 ==

== ENCOUNTER → 2025-05-25 14:13 | Outpatient (BNVA) | payer OTHER, SELFPAY | PROVIDERS: PCP Internal Medicine; Visit Provider Physician Assistant | DX: M17.11 Unilateral primary osteoarthritis, right knee (principal) | CPT/HCPCS: 20610; 99213; J3301; J9999 ==

== ENCOUNTER → 2025-07-15 09:56 | Outpatient (BNVA) | payer OTHER, SELFPAY | PROVIDERS: PCP Internal Medicine; Visit Provider Physician Assistant | DX: M17.11 Unilateral primary osteoarthritis, right knee (principal) | CPT/HCPCS: 73560; 73565; 99214 ==

== ENCOUNTER 2025-07-29 10:22 | Outpatient (CLI) | payer OTHER, SELFPAY ==
--- NOTE | 2025-07-29 10:30 | CT_ITS ---
WS: [id number] CT RIGHT KNEE, NONCONTRAST [facility] TECHNIQUE: Noncontrast CT of the RIGHT knee to include the RIGHT hip and ankle. CLINICAL INFORMATION: RIGHT TOTAL KNEE ARTHROPLASTY COMPARISON: None. DLP: 820.[address] scans at [facility] use at least one of these dose optimization techniques: automated exposure control; mA and/or kV adjustment per patient size (includes targeted exams where dose is matched to clinical indication); or iterative reconstruction. FINDINGS: Advanced tricompartmental arthritis RIGHT knee. Moderate suprapatellar effusion. Hypertrophic patella. Vascular calcification. Postoperative changes in the pelvis. CT/CT knee RT MALATHI [id number] IMPRESSION: Images obtained for preoperative purposes.
== END 2025-07-29 10:23 | disposition home or self-care (01) ==
LOC: RAD 10:22
PROVIDERS: PCP Internal Medicine; Visit Provider Physician Assistant
DX: M17.11 Unilateral primary osteoarthritis, right knee (principal); M25.461 Effusion, right knee
CPT/HCPCS: 73700

== ENCOUNTER → 2025-08-16 15:22 | Outpatient (BNVA) | payer OTHER, SELFPAY | PROVIDERS: PCP Internal Medicine; Visit Provider Student in an Organized Health Care Education/Training Program | DX: Z01.818 Encounter for other preprocedural examination (principal); E11.9 Type 2 diabetes mellitus without complications | CPT/HCPCS: 36415; 80053; 81003; 83036; 85025 ==

== ENCOUNTER → 2025-09-27 13:12 | Outpatient (BNVA) | payer OTHER, SELFPAY | PROVIDERS: PCP Internal Medicine; Referring Provider Family Medicine; Visit Provider Internal Medicine Cardiovascular Disease | DX: I12.9 Hypertensive chronic kidney disease with stage 1 through stage 4 chronic kidney disease, or unspecified chronic kidney disease (principal); E11.22 Type 2 diabetes mellitus with diabetic chronic kidney disease; N18.4 Chronic kidney disease, stage 4 (severe); Z79.84 Long term (current) use of oral hypoglycemic drugs; R94.31 Abnormal electrocardiogram [ECG] [EKG]; Z01.810 Encounter for preprocedural cardiovascular examination; Z72.0 Tobacco use; R01.1 Cardiac murmur, unspecified; R07.9 Chest pain, unspecified | CPT/HCPCS: 36415; 80048; 83880; 93005; 99204 ==

== ENCOUNTER 2025-10-14 12:57 | Outpatient (CLI) | payer OTHER, SELFPAY ==
--- NOTE | 2025-10-14 13:30 | USCV_ITS ---
Lidya Armas Age: 70 Gender: F : 1955 Exam Date: 10/14/2025 13:33 Ordering Phys: Yanick Robison MD ([email or web address]) Technologist: AMARA [place] [facility] [place]ication: Murmur BP: 120 / 86 HR: 59 Rhythm: Sinus Technical Quality: Adequate MEASUREMENTS (Male / Female) Normal Values 2D ECHO LV Diastolic Diameter PLAX 5.2 cm 4.2 - 5.9 / 3.9 - 5.3 cm IVS Diastolic Thickness 0.9 cm 0.6 - 1.0 / 0.6 - 0.9 cm IVS Systolic Thickness 0.9 cm LVPW Diastolic Thickness 1.0 cm 0.6 - 1.0 / 0.6 - 0.9 cm LVPW Systolic Thickness 1.0 cm LVOT Diameter 2.1 cm LV Ejection Fraction 2D Teich 21.2 % LV Ejection Fraction MOD 4C 74.2 % LV Ejection Fraction MOD 2C 75.0 % LV Ejection Fraction 2C AL 75.4 % LA Diameter 3.7 cm RA Systolic Volume 4C AL 52.5 ml RA Systolic Volume 4C MOD 51.4 ml LA Sys Volume AL 53.4 cm cubed LA Sys Volume Index AL 28.2 cm cubed/m squared Aorta at Sinotubular Diameter 3.0 cm IVC Diameter 1.7 cm M-MODE LA Ao Ratio MM 1.4 AV Cusp Separation MM 2.2 cm DOPPLER AV Peak Velocity 216.0 cm/s LVOT Peak Velocity 133.0 cm/s AV Area Cont Eq vti 2.5 cm squared AV Area Cont Eq pk 2.1 cm squared MV Peak Velocity 145.0 cm/s MV Area PHT 3.5 cm squared Mitral E to A Ratio 0.7 TR Peak Velocity 98.0 cm/s TR Peak Gradient 3.8 mmHg TV Peak E Velocity 69.0 cm/s PV Peak Velocity 120.0 cm/s FINDINGS Left Ventricle Normal left ventricular size. Hyperdynamic left ventricular systolic function with an ejection fraction of 74%. Normal left ventricular wall thickness. Mildly increased left ventricular outflow tract peak velocity of 1.3 m/s due to hyperdynamic left ventricle. There is no evidence of left ventricular outflow tract obstruction. Normal left ventricular diastolic function. Right Ventricle Normal right ventricular size and systolic function. RVSP could not be calculated due to incomplete tricuspid regurgitation velocity profile. Right Atrium Normal right atrial size. Left Atrium Normal left atrial size. IA Septum Normal appearance of the interatrial septum. Mitral Valve Normal mitral valve structure. No mitral valve stenosis or regurgitation. Aortic Valve Normal aortic valve structure with tricuspid aortic valve. Aortic valve velocity mildly increased due to increased flow. Mild aortic valve regurgitation. No aortic valve stenosis. Tricuspid Valve Normal tricuspid valve structure. No tricuspid valve stenosis or regurgitation. Pulmonic Valve Normal pulmonic valve structure. No pulmonic valve stenosis or regurgitation. Pericardium No pericardial effusion. Aorta Normal diameter of the aortic root and ascending thoracic aorta. IVC Normal IVC diameter. CONCLUSIONS Normal left ventricular cavity size. Hyperdynamic left ventricular systolic function. Ejection fraction 74% Mildly increased velocity in the left ventricular outflow tract and across aortic valve due to hyperdynamic left ventricular systolic function. No LVOT obstruction or aortic valve stenosis. Mild aortic valve regurgitation Normal right ventricular size and systolic function. Yanick Robison MD, FACC (Electronically Signed) Final Date: 14 October 2025 15:39 S
== END 2025-10-14 12:58 | disposition home or self-care (01) ==
PROVIDERS: PCP Internal Medicine; Visit Provider Internal Medicine Cardiovascular Disease
DX: R01.1 Cardiac murmur, unspecified (principal); I51.89 Other ill-defined heart diseases; I35.1 Nonrheumatic aortic (valve) insufficiency
CPT/HCPCS: 93306

== ENCOUNTER 2025-10-21 09:18 | Outpatient (CLI) | payer OTHER, SELFPAY ==
--- NOTE | 2025-10-21 | ECG_ITS ---
[facility]25[facility]21 Pat Name: Lidya Armas Department: Room: Gender: Female Donor Services Coordinator: : 1955 Requested By: Yanick Robison Order Number: [id number] Roopa MD: Shahla Howard M.D. Interpretive Statements Lung unchanged pre/post procedure; Intraprocedure shortess of breath; Symptoms resoled by discharge PROCEDURE: At the baseline, the EKG revealed normal sinus rhythm with some nonspecific ST-T changes. The baseline heart was 62 bpm with a blood pressue of 119/74 mm of Hg Lexiscan was infused over a period of 20 seconds. A total of 0.4 milligrams of Lexiscan was infused. The stress phase was continued for a total of 5 minutes. Heart rate at the end of the stress phase was 64 bpm with a blood pressure 150/73 mm of Hg. The EKG at the peak infusion revealed no significant changes. Sestamibi was injected 20 seconds after the Lexiscan infusion. Heart rate at the end of the recovery phase was 64 bpm with a blood pressure of 143/70 mm of Hg. CONCLUSION: 1. No significant EKG changes with the LexiScan infusion 2. No LexiScan induced chest pain or cardiac arrhythmia 3. Normal blood pressure and heart rate response 4. Sestamibi/sestamibi perfusion scan pending; see separate report. Electronically Signed On 10-23-2025 20:25:44 BOX LINING MACHINE OPERATOR by Shahla Howard M.D. [email or web address]
--- NOTE | 2025-10-21 08:13 | NMCV_ITS ---
NM mackenzie perf SPECT r/s* [id number] Lidya Armas Age: 70 Gender: F : 1955 Exam Date: 10/21/2025 10:20 Ordering Phys: Yanick Robison MD ([email or web address]) Technologist: CARLOS Quick Exam Location: [facility] Indications: cp STRESS TEST Please see separate stress test report in [facility] for full findings IMAGE PROTOCOL Rest/Stress 1 Lexiscan Day Radiopharmaceutical Dose (mCi) Administration Site Administered by Rest: Tc-99m 10.[address], OPHTHALMIC SURGEON Sestamibi Stress:Tc-99m 32.[address], OPHTHALMIC SURGEON Sestamibi Rest: 21-Oct-2025 60 Discovery 630 Stress: 21-Oct-2025 30 Discovery 630 0.4mg Lexiscan. Supine position only as patient was unable to lay prone. SPECT RESULTS Technical Quality: Good Raw Data Analysis: Normal Image Corrections: No attenuation or motion correction applied Summed Stress Score: 0 Summed Rest Score: 0 Summed Difference Score: 0 PERFUSION FINDINGS Fairly uniform myocardial tracer uptake with no significant perfusion abnormalities FUNCTIONAL RESULTS (calculated via Gated SPECT) Stress Image LV EF (%): 75 Stress EDV (mL):89 TID: 0.85 Stress ESV (mL):22 FUNCTIONAL FINDINGS: Segmental wall motion analysis revealing no gross wall motion abnormalities. Normal transient ischemic dilatation ratio. Normal LV volume IMPRESSIONS 1. Myocardial perfusion imaging revealing uniform myocardial tracer uptake with no significant perfusion abnormalities 2. Normal LV ejection fraction of 75% 3. LV wall motion analysis revealing no gross wall motion abnormalities. 4. Normal LV volume Low probability for coronary ischemia, based on the above findings Dr Shahla Howard MD FACC (Electronically Signed) Final Date: 21 October 2025 11:55 S
[2025-10-21 09:37] VITALS: BMI 32.3
[2025-10-21 11:07] VITALS: BP 143/70; PULSE 63
== END 2025-10-21 09:19 | disposition home or self-care (01) ==
LOC: CDL 09:19
PROVIDERS: PCP Internal Medicine; Visit Provider Internal Medicine Cardiovascular Disease
DX: R94.31 Abnormal electrocardiogram [ECG] [EKG] (principal); R07.9 Chest pain, unspecified
CPT/HCPCS: 36415; 78452; 93017; 96374; A9500